=== PATIENT | male | born 1965 | race Caucasian/White ===

== ENCOUNTER 2016-05-06 14:00 | Emergency (ER) ==
[2016-05-06 14:08] VITALS: BP 155/89
--- NOTE | 2016-05-06 14:44 | PROVIDER DOCUMENTATION ---
Addendum entered and electronically signed by Shanta Naylor CRNP 05/07/16 07:10: Additional Progress - ADDITIONAL PLAN OF CARE/RESULTS Additional Progress/Plan/Lab Results: Temp 98.0, Pulse 84, RR 18, B/P 155/84 Original Note: HPI-Musculoskeletal Pain/Inj - GENERAL Chief Complaint: Extremity Pain Stated Complaint: KNEE PAIN Time Seen by Provider: 05/06/16 14:18 Source: patient, family - HX OF PRESENT ILLNESS-MUSKULOSKELTAL Nature of Presenting Problem: Reports right knee pain x 6 months continuing to hurt. Reports has received steroids injections with no relief and taking tylenol with no relief. Denies any injuries. Imaging past two months. Reports constant pain. Quality of Pain: reports: aching Severity in ED: severe Onset/Duration: other (6 mo) Timing: constant Modifying Factors: worse with: movement Any recent injury?: No Locality of Occurance: Home Similar Symptoms Previously?: Yes Recently seen or treated by another doctor?: Yes Review of Systems - Adult - REVIEW OF SYSTEMS - ADULT Constitutional: denies: chills, fever, fatique Eyes: reports: no symptoms reported Ears, Nose, Mouth & Throat: reports: no symptoms reported Cardiovascular: denies: chest pain, irregular heart rate, palpitations Respiratory: reports: no symptoms reported Gastrointestinal: reports: no symptoms reported Genitourinary: reports: no symptoms reported Musculoskeletal: reports: see HPI, joint pain. denies: frequent leg cramps, joint swelling, neck pain Integumentary: reports: no symptoms reported Neurological: reports: no symptoms reported Psychiatric: reports: no symptoms reported Endocrine: reports: no symptoms reported Hematologic/Lymphatic: reports: no symptoms reported Allergic/Immunologic: reports: no symptoms reported All Other Systems: Reviewed and Negative Past History - Adult - PAST MEDICAL HISTORY-ADULT Review of Records: reports: Nursing Assessment Review, Medications Reviewed Major Childhood Illnesses: reports: denies history Cardiovascular: reports: HTN, hyperlipidemia, SC Respiratory: reports: sleep apnea, other (copd) Genitourinary: reports: kidney stones Musculoskeletal: reports: arthritis, chronic pain (right knee) Neurological: reports: headaches/migraines Endocrine/Immune: reports: Diabetes - PRIOR SURGERIES/PROCEDURES Surgical/Procedure History: reports: appendectomy, cholecystectomy, hernia repair, other (heart cath several years ago/ no recent surgery) - IMMUNIZATION STATUS Childhood Immunizations: See Nurse Assessment Flu Vaccine: See Nurse Assessment - FAMILY HISTORY Family History: reviewed, not pertinent - SOCIAL HISTORY Smoking: cigarettes, less than 1 pack/day Provider spent 3-5 mins advising pt. on dangers of tobacco.: Discussed manners to quit use, and f/u contacts for add'l counseling. Substance Use: none/never Physical Exam-Injury Related - Physical Exam-Injury Related Initial Vital Signs Reviewed: Yes General Appearance: appears well, alert, no apparent distress Eyes: PERRL/EOMI, pink conjunctivae Head, Ears, Nose, Mouth & Throat: normocephalic/atraumatic, moist mucous membranes, normal ENT inspection, TMs normal, pharynx normal Neck: non-tender, full range of motion, supple, normal inspection Respiratory: chest non-tender, lungs clear, normal breath sounds, no pleuratic chest pain, no respiratory distress, no accessory muscle use Cardiovascular: normal peripheral pulses, regular rate, rhythm, no edema, no gallop, no JVD, no murmur Abdominal Exam: normal bowel sounds, non tender, soft, no organomegaly, no pulsatile mass Lymphatic: no adenopathy Back Exam: normal inspection, no CVA tenderness, no vertebral tenderness Extremity: normal range of motion, normal gait, normal inspection, no pedal edema, no calf tenderness, normal capillary refill, pelvis stable, tenderness ( mild ttp lateral and medial) Integumentary: normal color, warm/dry Neurologic: doper operator II-XII nml as tested, no motor/sensory deficits Psych/Mental Status: AL, normal mood/affect, normal thought content, normal thought process, oriented x 3 Departure - Departure Time of Disposition Order: 14:40 DIAGNOSIS: Knee pain, chronic Qualifiers: Laterality: right Qualified Code(s): M25.561 - Pain in right knee; G89.29 - Other chronic pain Disposition: HOME 01 Certified Medical Emergency: Emergent Condition: Stable Additional Instructions: ED Follow Up Instructions: You have been treated by a care provider in the Emergency Department. These instructions are being provided to you so you can have an understanding of how to care for yourself upon discharge. Upon discharge from the Emergency Department, you are responsible for making arrangements for follow-up care by a physician of your choice. Take all prescribed medications as directed. Return to the Emergency Department immediately for any new or worsening symptoms. You may call the Physician Referral phone number at [phone] to obtain a list of Physicians who are taking new patients. Attestation - Scribe Verification/Attestation Scribe:: Crystal Underwood Acting as Scribe for:: Shanta Naylor Scribe documention review:: This chart was documented by a scribe and accurately reflects the service the provider performed and the decisions made by the provider.
[2016-05-06] MEDS ORDERED: DECADRON IV ONE (15:02)
[2016-05-06] MEDS ORDERED: TORADOL IM STA ×2 (15:02→15:04)
[2016-05-06] MEDS ORDERED: DECADRON IM ONE (15:10)
== END 2016-05-06 15:26 | disposition home or self-care (01) ==
LOC: P.ED 14:00
DX: M25.561 Pain in right knee (principal); G89.29 Other chronic pain; I10 Essential (primary) hypertension; E78.5 Hyperlipidemia, unspecified; I25.2 Old myocardial infarction; J44.9 Chronic obstructive pulmonary disease, unspecified; M19.90 Unspecified osteoarthritis, unspecified site; E11.9 Type 2 diabetes mellitus without complications; F17.210 Nicotine dependence, cigarettes, uncomplicated; Z71.6 Tobacco abuse counseling
CPT/HCPCS: 96372; J1885